=== PATIENT | male | born 1995 | race Caucasian/White ===

== ENCOUNTER 2017-07-10 01:10 | Emergency (ER) | payer OTHER ==
[~2017-07-10] VITALS: Ht 182.9 cm; Wt 86.2 kg
[2017-07-10 01:17] VITALS: BP 133/69
--- NOTE | 2017-07-10 01:20 | NUR ---
PT. AMBULATED TO ER BED 12
--- NOTE | 2017-07-10 01:21 | NUR ---
PATIENT PRESENTS TO ED WITH FLU SYMPTOMS . PT STATES SORE THROAT, AND COUGH. DENIES N/V/D; SKIN IS PINK/WARM/DRY; AAOX4 WITH EVEN AND STEADY GAIT; PATIENT STATES PAIN OF 0/10 AT THIS TIME; VSS; PATIENT POSITIONED FOR COMFORT; HOB ELEVATED; BEDRAILS UP X2; BED DOWN. ER MD MADE AWARE OF PT STATUS.
--- NOTE | 2017-07-10 01:23 | NUR ---
Patient being evaluated by physician at bedside.
--- NOTE | 2017-07-10 01:36 | NUR ---
FLU SWAB COMPLETED AT BEDSIDE PLACE IN [facility]
[2017-07-10] MEDS ORDERED: ACETAMIN/CODEINE 120/12MG-5ML 5 ML UDC PO ONE (02:00)
[2017-07-10] MEDS ORDERED: predniSONE 20 MG TAB PO ONE (02:00)
--- NOTE | 2017-07-10 02:21 | NUR ---
Note undone in EDM - 07/10/17 at 0315 by [facility] PATIENT PRESENTS TO ED WITH FLU SYMPTOMS . PT STATES SORE THROAT, AND COUGH. DENIES N/V/D; SKIN IS PINK/WARM/DRY; AAOX4 WITH EVEN AND STEADY GAIT; PATIENT STATES PAIN OF 0/10 AT THIS TIME; VSS; PATIENT POSITIONED FOR COMFORT; HOB ELEVATED; BEDRAILS UP X2; BED DOWN. ER MD MADE AWARE OF PT STATUS.
[2017-07-10 02:40] VITALS: BP 130/68
--- NOTE | 2017-07-10 02:40 | NUR ---
Patient discharged with v/s stable. Written and verbal after care instructions given and explained. Patient alert, oriented and verbalized understanding of instructions. Ambulatory with steady gait. All questions addressed prior to discharge. ID band removed. Patient advised to follow up with PMD. Rx of PREDINISONE, ROBITUSSIN given. Patient educated on indication of medication including possible reaction and side effects. Opportunity to ask questions provided and answered.
== END 2017-07-10 02:40 | disposition home or self-care (01) ==
LOC: MED 01:10
DX: J20.9 Acute bronchitis, unspecified (principal)
CPT/HCPCS: 36415; 71045; 87804; 99285; J7512; Q0092